=== PATIENT | female | born 1945 | race Caucasian/White ===

== ENCOUNTER 2019-07-27 15:32 | Inpatient (IN) ==
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
[2019-07-27 16:06] LABS: BASO# 0.05 X1000 (0.0-0.2); BASO% 0.7 % (0.0-0.8); EOS# 0.15 X1000 (0.0-0.7); EOS% 2.2 % (0.0-10.0); HEMATOCRIT 38.4 % (37.0-47.0); HEMOGLOBIN 12.5 g/dL (12.0-16.0); IMM GRAN# 0.02 X1000 (0.0-0.04); IMM GRAN% 0.3 % (0.0-0.5); LYMPH# 1.98 X1000 (1.2-3.4); LYMPH% 28.5 % (20.5-51.1); MCH 29.8 PG (27-31); MCHC 32.6 g/dL (33-37); MCV 91.6 FL (81-99); MONO# 0.63 X1000 (0.11-0.59); MONO% 9.1 % (1.7-9.3); MPV 11.8 FL (7.4-10.4); NEUT# 4.12 X1000 (1.4-6.5); NEUT% 59.2 % (42.2-75.2); PLT 264 X1000 (130-400); RBC 4.19 XMIL (4.2-5.4); RDW 13.9 % (11.5-14.5); WBC 6.95 X1000 (4.8-10.8)
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
[2019-07-27 16:39] LABS: URINE SOURCE CATH
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
[2019-07-27 16:44] LABS: ALB/GLOB RATIO 1.6; ALBUMIN 4.1 g/dL (3.5-5.0); CALCIUM 8.9 mg/dL (8.8-10.2); POTASSIUM 4.1 mmol/L (3.5-5.1); TOTAL BILIRUBIN 0.32 mg/dL (0.20-1.00); TOTAL PROTEIN 6.7 g/dL (6.3-8.3)
[2019-07-27 16:44] LABS: BILIRUBIN URINE NEGATIVE (NEGATIVE); BLOOD URINE NEGATIVE (NEGATIVE); COLOR YELLOW; GLUCOSE URINE 200 mg/dL (NEGATIVE); KETONE URINE NEGATIVE (NEGATIVE); LEUKOCYTES URINE NEGATIVE (NEGATIVE); NITRITE URINE NEGATIVE (NEGATIVE); PH URINE 8.5; PROTEIN URINE NEGATIVE (NEGATIVE); SP GRAVITY URINE 1.015; TURBIDITY URINE CLEAR (CLEAR); UROBILINOGEN URINE NORMAL (NORMAL)
[2019-07-27 16:45] LABS: UR EPITHELIAL CELLS <10 /HPF (<10); URINE BACTERIA NEGATIVE /HPF; URINE RBC <10 /HPF (<10); URINE WBC <10 /HPF (<10)
[2019-07-27 16:55] LABS: UR AMPHETAMINES QUAL NONE DETECTED (NONE DETECT); UR BARBITUATES QUAL NONE DETECTED (NONE DETECT); UR BENZODIAZEPIN QUAL NONE DETECTED (NONE DETECT); UR CANNABINOIDS QUAL NONE DETECTED (NONE DETECT); UR COCAINE QUAL NONE DETECTED (NONE DETECT); UR METHADONE QUAL NONE DETECTED (NONE DETECT); UR OPIATES QUAL NONE DETECTED (NONE DETECT); UR OXYCODONE QUAL NONE DETECTED (NONE DETECT); UR PCP QUAL NONE DETECTED (NONE DETECT)
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
[2019-07-27] MEDS ORDERED: NORVASC PO ONE (21:41)
[2019-07-27] MEDS: NORVASC PO SCH (21:43)
[2019-07-27] MEDS ORDERED: NORVASC ONE (21:43)
[2019-07-27] MEDS: ZOFRAN IV PRN (23:27)
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
[2019-07-28] MEDS: PRILOSEC PO SCH (07:30)
[2019-07-28 07:31] LABS: BASO# 0.02 X1000 (0.0-0.2); BASO% 0.3 % (0.0-0.8); HEMATOCRIT 36.3 % (37.0-47.0); HEMOGLOBIN 11.6 g/dL (12.0-16.0); IMM GRAN# 0.02 X1000 (0.0-0.04); IMM GRAN% 0.3 % (0.0-0.5); LYMPH# 1.31 X1000 (1.2-3.4); LYMPH% 17.5 % (20.5-51.1); MCH 29.6 PG (27-31); MCV 92.6 FL (81-99); MONO# 0.59 X1000 (0.11-0.59); MONO% 7.9 % (1.7-9.3); NEUT# 5.56 X1000 (1.4-6.5); PLT 261 X1000 (130-400); RBC 3.92 XMIL (4.2-5.4); RDW 13.9 % (11.5-14.5)
[2019-07-28 07:40] LABS: CALCIUM 8.6 mg/dL (8.8-10.2); POTASSIUM 3.9 mmol/L (3.5-5.1)
[2019-07-28] MEDS: ZYLOPRIM PO SCH ×2 (09:00→20:34)
[2019-07-28] MEDS: TRICOR PO SCH (09:00)
[2019-07-28] MEDS: ZOLOFT PO SCH ×2 (09:00→20:34)
[2019-07-28] MEDS: NORVASC PO SCH ×2 (09:00→20:34)
[2019-07-28] MEDS ORDERED: TYLENOL PO ONE (13:40)
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
[2019-07-28] MEDS: REQUIP PO SCH (20:34)
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
[2019-07-28] MEDS ORDERED: ROPINIROLE HCL 0.5 MG PO SCH (21:00)
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
[2019-07-29] MEDS: TYLENOL PO PRN ×3 (05:04→18:16)
[2019-07-29] MEDS: PRILOSEC PO SCH (06:09)
[2019-07-29] MEDS: NORVASC PO SCH ×2 (08:08→21:26)
[2019-07-29] MEDS: ZYLOPRIM PO SCH ×2 (08:08→21:25)
[2019-07-29] MEDS: REQUIP PO SCH ×2 (08:08→21:25)
[2019-07-29] MEDS: TRICOR PO SCH (08:08)
--- NOTE | 2019-07-29 10:31 | Diag Imaging Result Doc PS360 ---
EXAM: MRI BRAIN W/WO CONTRAST 07/28/2019 HISTORY: visual disturbance; h/o PRESS; follow up TECHNIQUE: T1 sagittal, axial and post gadolinium-enhanced axial with coronal reformation, T2, FLAIR, DWI axial and coronal gradient echo. COMMENT: The current study is compared with the previous examination of 08/30/2018. There is increased T2-weighted signal intensity in both cerebellar hemispheres. There is also increased precontrast T1-weighted signal intensity. There is cortical and subcortical hyperintensity on T2 within the posterior hemispheres bilaterally including the right occipital cortex and the posterior temporal cortex bilaterally. There are some areas of cortical hyperintensity on T1 which may be due to laminar necrosis. Compared to the previous examination the findings in the cerebellar hemispheres are smaller and less uniformly hyperintense on T2. The hyperintensity on T1 was not present previously. The signal abnormalities seen in the posterior cerebral hemispheres are more extensive than at the time of the previous study. There continue to be extensive patchy and punctate areas of increased T2-weighted signal intensity in the periventricular white matter of both hemispheres with lacunae present in the centrum semiovale bilaterally. This has not changed appreciably since the previous study. There restricted diffusion in the posterior cerebral hemispheres. There is no evidence of restricted diffusion in the cerebellum. This was not the case on the previous study, at which time there was increased DWI signal intensity in both cerebellar hemispheres and a more limited due to distribution in the posterior cerebral hemispheres as well as in the centrum semiovale ovale regions bilaterally particularly on the right side. Additionally, there is also soft tissue swelling possibly representing a hematoma in the scalp on the left side anteriorly which was not present previously. There is no evidence of abnormal gadolinium enhancement. IMPRESSION: The distribution of restricted diffusion in the posterior cerebral hemispheres with be consistent with PRESS. There is clearly encephalomalacia related to the distribution of the previous diffusion restriction lesions seen at the time of the examination of 08/30/2018 both in the posterior hemispheres and in the cerebellar hemispheres. The possibility of acute infarction superimposed on chronic encephalomalacic changes cannot be excluded. Electronically signed by Federico Vail 07/29/2019 10:28 AM
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
--- NOTE | 2019-07-29 13:34 | Diag Imaging Result Doc PS360 ---
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 COMMENT: 3-D MIPS were performed. There are calcific plaques in both carotid bulbs. The distal cervical internal carotid artery is markedly tortuous and makes a hairpin around the level of the mandibular rami. There is there is calcification present in the carotid siphons bilaterally. The anterior cerebral arteries are patent bilaterally although the A1 segment on the left is somewhat hypoplastic. Both middle cerebral arteries are patent. There is no evidence of aneurysm. The basilar artery and vertebral arteries are patent. There is some calcification in the proximal vertebral arteries bilaterally. The posterior cerebral arteries are patent bilaterally. IMPRESSION: No evidence of aneurysm or major branch occlusion. Electronically signed by Federico Vail 07/29/2019 1:32 PM
[2019-07-29] MEDS: NS 1,000 ML IV SCH (14:03)
[2019-07-29] MEDS: CRESTOR PO SCH (14:03)
[2019-07-29] MEDS: ZOLOFT PO SCH ×2 (21:25→22:09)
[2019-07-29] MEDS: LANTUS INSULIN SUBQ SCH (21:26)
[2019-07-30] MEDS: NS 1,000 ML IV SCH ×3 (00:16→14:51)
[2019-07-30] MEDS: PRILOSEC PO SCH (06:20)
[2019-07-30] MEDS: TYLENOL PO PRN (06:26)
[2019-07-30 08:27] LABS: AGAP 11; ALBUMIN 3.8 g/dL (3.5-5.0); BUN 19 mg/dL (8-22); CALCIUM 8.6 mg/dL (8.8-10.2); CHLORIDE 97 mmol/L (98-107); COSMO 279; CREATININE 0.9 mg/dL (0.5-0.9); ESTIMATED GFR > 60; GLUCOSE 219 mg/dL (70-104); POTASSIUM 3.9 mmol/L (3.5-5.1); SODIUM 135 mmol/L (136-145); TCO2 27 mmol/L (25-35)
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
[2019-07-30] MEDS: CRESTOR PO SCH (08:45)
[2019-07-30] MEDS: REQUIP PO SCH ×2 (08:45→21:01)
[2019-07-30] MEDS: BIOTIN PO SCH ×2 (08:45→08:48)
[2019-07-30] MEDS: TRICOR PO SCH (08:45)
[2019-07-30] MEDS: ZYLOPRIM PO SCH ×2 (08:45→21:01)
[2019-07-30] MEDS: NORVASC PO SCH ×2 (08:46→21:01)
[2019-07-30] MEDS: ASPIRIN PO SCH (08:46)
[2019-07-30] MEDS: ZOFRAN IV PRN (08:53)
[2019-07-30] MEDS ORDERED: ASPIRIN PO SCH (09:00)
--- NOTE | 2019-07-30 09:13 | ECHO REPORT ---
ORDER DATE: 07/29/2019 MEASUREMENTS: Aortic root 3.4, left atrium 3.5. SUMMARY: 1. Technically difficult study due to limited acoustic window quality. Intravenous echo contrast agent Optison was utilized to enhance endocardial definition. 2. The aortic valve is not well imaged but appears to open adequately on 2-dimensional images. Peak gradient across the aortic valve is less than 10 mmHg. There is mild aortic regurgitation. Mitral and tricuspid valves are without gross structural abnormality, while the pulmonic valve is not seen. There is trace mitral regurgitation. The aortic root is normal in size. 3. Normal left ventricular chamber size with mild concentric left ventricular hypertrophy is suggested. Estimated left ventricular ejection fraction appears to be at least 65%. No regional wall motion abnormalities are evident. Doppler suggests grade 1 left ventricular diastolic dysfunction. Left atrium, right atrium, right ventricle are grossly normal in size. 4. No pericardial effusion. 5. Appearance of the inferior vena cava suggests normal central venous pressure. cc: MD Alexandr Lawler MD
[2019-07-30] MEDS: LANTUS INSULIN SUBQ SCH ×2 (11:00→21:01)
[2019-07-30] MEDS: FLEXERIL PO SCH ×3 (14:50→21:00)
[2019-07-30] MEDS: ZOLOFT PO SCH (21:01)
[2019-07-31] MEDS: NS 1,000 ML IV SCH ×2 (04:18→17:28)
[2019-07-31] MEDS: BIOTIN PO SCH (08:56)
[2019-07-31] MEDS: REQUIP PO SCH ×2 (08:56→21:19)
[2019-07-31] MEDS: CRESTOR PO SCH (08:56)
[2019-07-31] MEDS: NORVASC PO SCH ×2 (09:04→21:18)
[2019-07-31] MEDS: ASPIRIN PO SCH (09:04)
[2019-07-31] MEDS: ZYLOPRIM PO SCH ×2 (09:04→21:19)
[2019-07-31] MEDS: TRICOR PO SCH (09:04)
[2019-07-31] MEDS: FLEXERIL PO SCH ×3 (09:04→21:18)
[2019-07-31] MEDS: LANTUS INSULIN SUBQ SCH ×2 (09:07→21:19)
[2019-07-31] MEDS: COZAAR PO SCH (09:07)
[2019-07-31] MEDS: PRILOSEC PO SCH (09:07)
[2019-07-31] MEDS: KEPPRA PO SCH ×2 (12:30→21:19)
[2019-07-31] MEDS: ZOFRAN IV PRN (12:30)
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
[2019-07-31] MEDS: NORCO-5 PO PRN (18:45)
[2019-07-31] MEDS: ZOLOFT PO SCH (21:18)
[2019-08-01] MEDS: NS 1,000 ML IV SCH (05:46)
[2019-08-01] MEDS: PRILOSEC PO SCH (05:49)
[2019-08-01 07:32] LABS: AGAP 11; ALBUMIN 3.5 g/dL (3.5-5.0); BUN 16 mg/dL (8-22); CALCIUM 8.9 mg/dL (8.8-10.2); CHLORIDE 102 mmol/L (98-107); COSMO 286; CREATININE 0.8 mg/dL (0.5-0.9); ESTIMATED GFR > 60; GLUCOSE 104 mg/dL (70-104); MAGNESIUM 1.6 mg/dL (1.5-2.7); PHOSPHORUS 2.5 mg/dL (2.7-4.5); POTASSIUM 4.3 mmol/L (3.5-5.1); SODIUM 143 mmol/L (136-145); TCO2 30 mmol/L (25-35)
[2019-08-01] MEDS: REQUIP PO SCH ×2 (08:44→20:48)
[2019-08-01] MEDS: ASPIRIN PO SCH (08:44)
[2019-08-01] MEDS: COZAAR PO SCH (08:44)
[2019-08-01] MEDS: NORVASC PO SCH ×2 (08:45→20:48)
[2019-08-01] MEDS: ZYLOPRIM PO SCH ×2 (08:45→20:48)
[2019-08-01] MEDS: NORCO-5 PO PRN (08:45)
[2019-08-01] MEDS: BIOTIN PO SCH (08:45)
[2019-08-01] MEDS: KEPPRA PO SCH ×2 (08:45→20:48)
[2019-08-01] MEDS: FLEXERIL PO SCH ×3 (08:45→20:48)
[2019-08-01] MEDS: CRESTOR PO SCH (08:45)
[2019-08-01] MEDS: TRICOR PO SCH (08:45)
[2019-08-01] MEDS: LANTUS INSULIN SUBQ SCH ×2 (08:47→20:49)
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
[2019-08-01] MEDS: PLAVIX PO SCH (17:09)
--- NOTE | 2019-08-01 17:28 | PROGRESS NOTE ---
DATE: 08/01/2019 SUBJECTIVE: Apparently, over the weekend the patient had some episodes of reduced responsiveness which was concerning for possible nonconvulsive seizure. Daughter reviews cellphone video of one of the times with me today. The video is taken from a distance, and it is difficult to see the patient's eyes and any subtle movements of the face. She seems to be rather still and not responding to the nurse who is trying to examine her and is talking to her. I do not see any shaking. I cannot see her eyes well in the video. The patient was started on Keppra 500 b.i.d. She has not had any further events since being started on the Keppra. She continues to have visual disturbance but has not had further unresponsiveness. OBJECTIVE: She is afebrile. Blood pressure 140s/40s to 50s. Pulse 70s respirations 20, and oxygen saturation 96% on room air. Ms. Arenas is awake and alert. She is able to communicate with me without obvious language disturbance. She seems a little less spontaneous than she was when I saw her last week. At times, she is noted to look up and to her left into the corner of the room. When I touch her shoulder though, she immediately brings her gaze in my direction, however. She is reporting seeing the mannequins. Pupils are equal, miotic, but reactive to bright light. Gaze is conjugate and forward. Vision remains impaired. Face is symmetric. Power in the limbs is preserved on gross testing. She is oriented. DIAGNOSTICS: MRI from Thursday was personally reviewed and showing areas of restricted diffusion. The bilateral posterior head regions without postcontrast enhancement. I reviewed the images from the prior MRI and this MRI with radiology today. Labs reviewed in the chart. Head and neck CT angiogram, no evidence of aneurysm or major branch occlusion. ASSESSMENT AND PLAN: Remains acute ischemic appearing change in the posterior cerebrum bilaterally with associated global vision loss and some clinical features of cortical blindness. There is also a question of PRES and intermittent seizure activity . CT angiogram was unrevealing. Blood pressure has come down. At this point, I would recommend telemetry and a 30 day cardiac event monitor. I agree with transesophageal echocardiogram. I would consider dual anti-platelet therapy for 3 to 4 weeks with a followup in the Neurology Clinic and plan for intermediate designer anti-platelet monotherapy. I would like to repeat EEG when that is available to us, hopefully claraorrow. Otherwise, no further suggestions to add to Dr. Narvaez's last note. cc: Justa Pompa MD MTDD
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
[2019-08-01] MEDS: ZOLOFT PO SCH (20:48)
[2019-08-02] MEDS: PRILOSEC PO SCH (06:38)
[2019-08-02 08:19] LABS: BASO# 0.04 X1000 (0.0-0.2); BASO% 0.5 % (0.0-0.8); EOS# 0.16 X1000 (0.0-0.7); EOS% 1.8 % (0.0-10.0); HEMATOCRIT 33.8 % (37.0-47.0); IMM GRAN# 0.02 X1000 (0.0-0.04); IMM GRAN% 0.2 % (0.0-0.5); LYMPH# 1.28 X1000 (1.2-3.4); LYMPH% 14.6 % (20.5-51.1); MCH 29.9 PG (27-31); MCHC 32.5 g/dL (33-37); MCV 91.8 FL (81-99); MONO# 1.09 X1000 (0.11-0.59); MONO% 12.5 % (1.7-9.3); MPV 12.1 FL (7.4-10.4); NEUT# 6.16 X1000 (1.4-6.5); NEUT% 70.4 % (42.2-75.2); PLT 188 X1000 (130-400); RBC 3.68 XMIL (4.2-5.4); RDW 13.5 % (11.5-14.5); WBC 8.75 X1000 (4.8-10.8)
[2019-08-02 08:37] LABS: AGAP 10; ALB/GLOB RATIO 1.3; ALBUMIN 3.1 g/dL (3.5-5.0); ALKALINE PHOSPHATASE 38 U/L (32-104); BUN 18 mg/dL (8-22); CALCIUM 8.7 mg/dL (8.8-10.2); CHLORIDE 98 mmol/L (98-107); COSMO 272; CREATININE 0.8 mg/dL (0.5-0.9); ESTIMATED GFR > 60; GLUCOSE 134 mg/dL (70-104); GOT 12 U/L (10-30); GPT 7 U/L (10-36); POTASSIUM 3.7 mmol/L (3.5-5.1); SODIUM 134 mmol/L (136-145); TCO2 26 mmol/L (25-35); TOTAL PROTEIN 5.4 g/dL (6.3-8.3)
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
--- NOTE | 2019-08-02 09:27 | EKG Report ---
Test Performed on : 08/02/2019 08:49:35 AM Test Reason : Follow up heart rhythm Blood Pressure : / mmHG Vent. Rate : 086 BPM Atrial Rate : 086 BPM P-R Int : 146 ms QRS Dur : 090 ms QT Int : 376 ms P-R-T Axes : 034 000 024 degrees QTc Int : 449 ms Sinus rhythm. with occasional premature ventricular complexes. Moderate voltage criteria for LVH, may be normal variant Borderline ECG When compared with ECG of 27-JUL-2019 15:45, (Unconfirmed) premature ventricular complexes. are now present Confirmed by Kevin TRAORE, Michael Simpson ([id number]) on 08/02/2019 1:13:16 PM
--- NOTE | 2019-08-02 09:39 | Diag Imaging Result Doc PS360 ---
EXAM: CHEST-2 VIEWS HISTORY: Fever TECHNIQUE: Chest two views COMPARISON: 07/27/2019 FINDINGS: The lungs are well expanded. The heart is enlarged. The vessels are not distended. There are no infiltrates. No pleural effusions. IMPRESSION: No pneumonia Electronically signed by Vic Garcia 08/02/2019 9:36 AM
[2019-08-02] MEDS: BIOTIN PO SCH (09:49)
[2019-08-02] MEDS: REQUIP PO SCH ×2 (09:49→21:35)
[2019-08-02] MEDS: ZYLOPRIM PO SCH ×2 (09:49→21:35)
[2019-08-02] MEDS: FLEXERIL PO SCH ×3 (09:49→21:35)
[2019-08-02] MEDS: KEPPRA PO SCH ×2 (09:49→21:36)
[2019-08-02] MEDS: NORVASC PO SCH ×2 (09:49→21:36)
[2019-08-02] MEDS: CRESTOR PO SCH (09:49)
[2019-08-02] MEDS: PLAVIX PO SCH (09:49)
[2019-08-02] MEDS: ASPIRIN PO SCH (09:50)
[2019-08-02] MEDS: COZAAR PO SCH (09:52)
[2019-08-02] MEDS: TRICOR PO SCH (09:53)
[2019-08-02] MEDS: LANTUS INSULIN SUBQ SCH ×2 (09:56→21:36)
[2019-08-02 13:02] LABS: URINE SOURCE CLEAN CATCH
[2019-08-02 13:07] LABS: BILIRUBIN URINE NEGATIVE (NEGATIVE); BLOOD URINE NEGATIVE (NEGATIVE); COLOR YELLOW; GLUCOSE URINE 500 mg/dL (NEGATIVE); KETONE URINE NEGATIVE (NEGATIVE); LEUKOCYTES URINE MODERATE (NEGATIVE); NITRITE URINE NEGATIVE (NEGATIVE); PROTEIN URINE NEGATIVE (NEGATIVE); SP GRAVITY URINE 1.011; TURBIDITY URINE CLEAR (CLEAR); UROBILINOGEN URINE NORMAL (NORMAL)
[2019-08-02 13:08] LABS: UR EPITHELIAL CELLS <10 /HPF (<10); URINE BACTERIA NEGATIVE /HPF; URINE RBC <10 /HPF (<10)
[2019-08-02] MEDS: NORCO-5 PO PRN (14:24)
[2019-08-02] MEDS: ROCEPHIN 1 GM in NS 50 ML IV SCH (14:30)
[2019-08-02] MEDS: MIRALAX PO SCH (17:12)
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
[2019-08-02] MEDS: DULCOLAX PR SCH (21:35)
[2019-08-02] MEDS: ZOLOFT PO SCH (21:36)
[2019-08-03] MEDS: PRILOSEC PO SCH (06:30)
[2019-08-03] MEDS: LANTUS INSULIN SUBQ SCH ×2 (08:25→20:49)
[2019-08-03] MEDS: NORCO-5 PO PRN (08:26)
[2019-08-03] MEDS: BIOTIN PO SCH (08:26)
[2019-08-03] MEDS: KEPPRA PO SCH ×2 (08:26→20:48)
[2019-08-03] MEDS: ZYLOPRIM PO SCH ×2 (08:26→20:48)
[2019-08-03] MEDS: NORVASC PO SCH ×2 (08:26→20:48)
[2019-08-03] MEDS: MIRALAX PO SCH (08:26)
[2019-08-03] MEDS: COZAAR PO SCH (08:27)
[2019-08-03] MEDS: PLAVIX PO SCH (08:27)
[2019-08-03] MEDS: ASPIRIN PO SCH (08:27)
[2019-08-03] MEDS: CRESTOR PO SCH (08:27)
[2019-08-03] MEDS: TRICOR PO SCH (08:27)
[2019-08-03] MEDS: REQUIP PO SCH ×2 (08:27→20:48)
[2019-08-03] MEDS: FLEXERIL PO SCH ×3 (08:27→20:48)
[2019-08-03] MEDS: DULCOLAX PR SCH ×2 (08:28→20:49)
[2019-08-03] MEDS: ROCEPHIN 1 GM in NS 50 ML IV SCH (13:10)
--- NOTE | 2019-08-03 14:34 | PROGRESS NOTE ---
DATE: 08/03/2019 Ms. Arenas has no specific complaints. She reports being unable to see, and she confirmed that more consistently today than when I had seen her several days ago. Her systolic blood pressures have been recorded 130s-150s in the last day or so. On exam, she has light perception only tested in each eye monocularly. She did not recognize hand motion today. She did not blink with approaching visual threat from any direction. Facial motility is symmetric. Extraocular movements are good. Neck is supple. I do not have any new suggestion from neurology standpoint. I would continue treating blood pressure, continue addressing her other risk factors, continue levetiracetam. Eventually, she will need another MRI to document baseline. If there is still a component of PRES, we might see some improvement in imaging findings and hope to see some improvement in her vision deficit. I am not optimistic that whatever deficit is due to ischemic infarction will show substantial recovery. Time will tell. Thanks for asking Neurology to see Ms. Arenas. cc: MD CLAUDIA Power III
[2019-08-03] MEDS: ZOLOFT PO SCH (20:48)
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
[2019-08-04] MEDS: PRILOSEC PO SCH (06:29)
--- NOTE | 2019-08-04 06:35 | PROGRESS NOTE ---
DATE: 08/03/2019 SUBJECTIVE: Overnight no events. Patient denies new complaints. Daughter is at bedside. OBJECTIVE: Vital Signs: Afebrile, temperature 98.3 degrees, pulse 87, respiratory rate 24, blood pressure 137/86, saturating 96 on room air. General: She has perception to light both eyes. She is complaining of left thumb pain. She has had prior history of gout though. Lungs: Air entry bilaterally equal. No wheeze, rhonchi, crackles. Cardiovascular: S1, S2 normal. No murmur or gallop. Abdomen: Soft, nontender. Extremities: No lower extremity edema. Alert and oriented x3. She had some swelling of the left thumb. ASSESSMENT AND PLAN: 1. Acute encephalopathy and visual impairment, differential being bilateral occipital ischemic cerebrovascular accident versus press syndrome. Continue dual anti-platelet medication and Keppra. 2. Periodic episodes of unresponsiveness. Could be related to seizures, which improved after Keppra. 3. Essential hypertension and diabetes. Continue current home insulin regimen, amlodipine, and losartan. 4. Fever. Continue intravenous ceftriaxone. Follow up final urine culture results. 5. Disposition. Physical therapy and occupational therapy have been ordered. Awaiting bed placement. cc: Farhad Alas MD
[2019-08-04] MEDS: LANTUS INSULIN SUBQ SCH (09:43)
[2019-08-04] MEDS: ASPIRIN PO SCH (09:48)
[2019-08-04] MEDS: TRICOR PO SCH (09:50)
[2019-08-04] MEDS: CRESTOR PO SCH (09:51)
[2019-08-04] MEDS: KEPPRA PO SCH (09:51)
[2019-08-04] MEDS: NORVASC PO SCH (09:51)
[2019-08-04] MEDS: FLEXERIL PO SCH ×2 (09:51→14:24)
[2019-08-04] MEDS: BIOTIN PO SCH (09:51)
[2019-08-04] MEDS: COZAAR PO SCH (09:51)
[2019-08-04] MEDS: ZYLOPRIM PO SCH (09:51)
[2019-08-04] MEDS: PLAVIX PO SCH (09:51)
[2019-08-04] MEDS: DULCOLAX PR SCH (09:52)
[2019-08-04] MEDS: MIRALAX PO SCH (09:53)
[2019-08-04] MEDS: REQUIP PO SCH (10:09)
[2019-08-04] MEDS: ROCEPHIN 1 GM in NS 50 ML IV SCH (14:24)
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
[2019-08-04 16:32] VITALS: BP 140/52
== END 2019-08-04 18:24 | DRG 64 ==
LOC: SUPCPDRO → ED 15:32 → SUATTDRO 21:37 → 3N 21:37 → OBSVTOIN 21:37 → INTOOBSV 21:37
PROVIDERS: ATTEND Internal Medicine